=== PATIENT | female | born 1990 | race Caucasian/White ===

== ENCOUNTER 2017-07-20 20:31 | Emergency (ER) | payer BC ==
[~2017-07-20] VITALS: Ht 175.3 cm; Wt 72.0 kg
[~2017-07-20 20:31] MED LIST: ALBU1AER9
[2017-07-20 20:37] VITALS: BP 134/80; TEMP 36.5; Ht 175.3 cm; Wt 72.0 kg
[2017-07-20] MEDS ORDERED: XYLOCAINE 1%/SOD BICARB 20 ML VIAL INFIL ONE (21:00)
--- NOTE | 2017-07-20 21:00 | EMERGENCY ROOM VISIT NOTE ---
History Report prepared by Rodriguez: Venessa Greene Under the Supervision of: Dr. Yi Cody M.D. 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 She notes she was lifting up a car trunk and it hit her in the face. She has a laceration on the bridge of her nose and a cut by her left eye. She does not have a headache, denies nasal bleeding or LOC. No visual changes. TD is UTD. 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 See HPI for pertinent positives & negatives. A total of 6 systems reviewed and were otherwise negative. Past Medical & Surgical Surgical Problems: (1) [place] teeth removed Family History High blood pressure Social History Smoking Status: Never Smoker Smokeless Tobacco Use: No Alcohol Use: occasionally Marital Status: in relationship Housing Status: lives with roommate Occupation Status: employed Current/Historical Medications Scheduled Albuterol (Proair Hfa), PRN Allergies Coded Allergies: No Known Allergies (Unverified , 03/29/11) Physical Exam Vital Signs Date Time Temp Pulse Resp B/P (MAP) Pulse Ox O2 Delivery O2 Flow Rate FiO2 07/20/17 22:24 60 16 100 07/20/17 20:37 36.5 56 18 134/80 100 Room Air Physical Exam Vital signs reviewed. General: Well-appearing female, in no significant distress. HEENT: No scleral icterus, PERRLA, EOMI, neck supple. Lacerations as below. Musculoskeletal: Atraumatic, no peripheral edema. Neurologic: Patient awake alert and oriented x 3. Skin: 0.5cm laceration over the bridge of the nose. It is linear and gaping. Second laceration 0.5 cm to the lateral edge of the left periorbital rim. Edges are gaping, minimal bleeding. Otherwise warm and dry. Medical Decision & Procedures Procedure Location: Nasal bridge, Left periorbital rim Total length: 1 cm (0.5 cm, 0.5 cm) Complexity: simple Verbal consent was obtained after the risks and benefits were explained, including but not limited to bleeding, scarring, infection, pain, and bone/joint /nerve damage. At this time, the risks of the procedure are less than the risks of NOT performing the procedure. A time out was taken and the correct patient and site identified. The skin was prepped with betadine. The target area was anesthetized with 1 ml of 1% lidocaine without epinephrine. Copious irrigation was performed using saline. A sterile field set. Examination revealed no injury to deep structures such as tendons, bone, or significant blood vessels. Debridement was not performed. The nasal bridge wound edges were approximated using 3, 6-0 simple interrupted nylon sutures. The L periorbital rim wound edges were approximated using 3, 6-0 simple interrupted nylon sutures. Hemostasis and excellent approximation was achieved. Antibacterial ointment and a sterile dressing applied to both wounds. Detailed wound care instructions and signs and symptoms of infection reviewed with the patient. No complications and the patient tolerated the procedure well. ED Course 2047: Past medical records reviewed. The patient was evaluated in room D3. A complete history and physical examination was performed. Medical Decision Differential diagnosis: Etiologies such as nasal fraction, facial laceration, closed head injury, concussion, as well as others were entertained. This patient was evaluated and appeared to be in no significant distress. Physical examination reveals 2 small lacerations to the face, one above the nasal bridge in 1 to the left lateral orbital rim. Patient had no significant head injury requiring imaging. She has had no vomiting or loss of consciousness. Patient's wounds were approximated, please see my notes above. Dressings were applied. The patient tolerated the procedure well. Tetanus shot is up-to-date. She will follow-up with her physician for suture removal in approximately 5 days. She was given detailed wound care instructions. She will return to the ER for worsening of symptoms or any medical concerns. Medication Reconcilliation Current Medication List: was personally reviewed by me Blood Pressure Screening Patient's blood pressure: Normal blood pressure Blood pressure disposition: Did not require urgent referral Impression Primary Impression: Laceration of multiple sites of face Scribe Attestation The scribe's documentation has been prepared under my direction and personally reviewed by me in its entirety. I confirm that the note above accurately reflects all work, treatment, procedures, and medical decision making performed by me. Departure Information Referrals [facility] (PCP) Patient Instructions My [facility] Additional Instructions Diagnosis: facial lacerations Wash once daily with warm water and mild soap. Blot dry and apply antibiotic ointment and a dressing. Remove sutures in 5 days. See you doctor. Your tetanus shot is UTD. Keep wound clean and dry. You may wash gently in the shower, but avoid swimming. Use high SPF sunscreen to avoid unsightly darkening of the scar for >1 year. Return to the ED or call your favorite Emergency Physician for signs of infection or any medical concerns. Thanks for your patience this evening!
[2017-07-20 22:24] VITALS: PULSE 60; O2SAT 100
== END 2017-07-20 22:26 | disposition home or self-care (01) ==
LOC: C.EDB 20:33 → C.EDD 22:26
DX: S09.90XA Unspecified injury of head, initial encounter (principal); S01.81XA Laceration without foreign body of other part of head, initial encounter; W22.8XXA Striking against or struck by other objects, initial encounter

== ENCOUNTER 2017-08-26 18:03 | Emergency (ER) | payer BC, OTHER ==
[~2017-08-26] VITALS: Ht 177.8 cm; Wt 72.0 kg
[2017-08-26 18:09] VITALS: BP 129/68; PULSE 102; TEMP 37; O2SAT 96; Ht 177.8 cm; Wt 72.0 kg
[2017-08-26] MEDS ORDERED: LIDOCAINE 1% BUFFERED INJ 5 ML VIAL INFIL ONE (18:30)
[2017-08-26] MEDS ORDERED: PRZ/40 PO (18:47)
[2017-08-26] MEDS ORDERED: PROAIR HFA INH (18:47)
[2017-08-26] MEDS ORDERED: CETI10CA PO (18:49)
--- NOTE | 2017-08-26 19:37 | EMERGENCY ROOM VISIT NOTE ---
History First contact with patient: 18:12 Chief Complaint: HAND PAIN/INJURY Stated Complaint: CUT LEFT HAND ON EXPLODED GLASS BOTTLE History of Present Illness The patient is a 27 year old female who presents to the Emergency Room with complaints of a laceration to her left palm. The patient reports that a growler glass broke in her hands. She reports a superficial laceration to the right palm, but complains of a bleeding wound to the left palm. She denies any initial paresthesias or numbness of the left hand or fingers. Tetanus immunization is up-to-date. The patient rates her discomfort a 3 out of 10. Review of Systems 10 system review was performed and was negative except for pertinent positives and negatives as indicated in history of present illness Past Medical/Surgical History Surgical Problems: (1) [place] teeth removed Medical Problems: (1) Anxiety (2) Depression Surgical Problems: (1) [place] teeth removed Family History High blood pressure Social History Smoking Status: Current Every Day Smoker Alcohol Use: occasionally Marital Status: in relationship Housing Status: lives with roommate Occupation Status: employed Current/Historical Medications Scheduled Cetirizine Hcl (Zyrtec Allergy), 10 MG PO DAILY Fluoxetine Hcl (Prozac), 60 MG PO DAILY [Proair Hfa], 2 PUFF INH PRN UD Physical Exam Vital Signs Date Time Temp Pulse Resp B/P (MAP) Pulse Ox O2 Delivery O2 Flow Rate FiO2 08/26/17 18:09 37.0 102 20 129/68 96 Room Air Physical Exam CONSTITUTIONAL: Healthy and well nourished. Alert and oriented X 3 with positive affect. Patient does not appear in any acute distress. HEENT: Normocephalic, atraumatic. Pupils equal, round and reactive. NECK: Full active range of motion without discomfort. MUSCULOSKELETAL: Examination of the left palm shows a 3.5 cm laceration with only mild bleeding on initial exam. The patient is able to flex and extend the fingers. Capillary refill at the fingertips is less than 2 seconds. Examination of the right palm shows a distal and superficial laceration that will not require suture repair. INTEGUMENTARY: No rash or other significant dermatologic conditions noted. NEUROLOGIC: Left hand and fingers are sensory intact. Medical Decision & Procedures Procedure Laceration repair was performed under local anesthesia after receiving verbal consent from the patient. While the patient suture tray was being set up, the patient reported that she developed severe bleeding that was starting to saturate her gauze and chucks pad. On my examination, the patient had an active arterial bleed. Applying direct pressure to surrounding arteries, several attempts at hemostasis were unsuccessful. I did apply some buffered 1% lidocaine in order to help with some of the discomfort. Additional attempts were made with 5-0 Vicryl [id number] sutures, both distally and proximally with adequate hemostasis. The patient was flexing her fingers and wrist for several minutes without any persistent active bleeding. At this point, additional local anesthesia was administered prior to irrigation. Quick exploration of the wound does not show any underlying foreign body or glass. The wound was then approximated using 4-0 nylon simple interrupted sutures. The patient tolerated the procedure well. ED Course Patient history and physical exam were performed. Nurse's notes were reviewed. Vital signs were reviewed and were normal. The patient did have an active bleed from her left palm laceration. Several Vicryl sutures had to be used for adequate hemostasis, and prior to wound closure. Blood pressure was rechecked and was normal. The patient denied any significant discomfort after the procedure was completed. A bulky pressure dressing was applied. She was instructed to return for any progressively worsening swelling, pain or active bleeding. She was otherwise provided specific written and verbal wound care instructions. Ice and elevation for swelling. Ibuprofen or Tylenol as needed for pain. Suture removal in 12-14 days, or seek reevaluation sooner for any wound concerns. The patient was happy with plan of care, and voiced understanding of all discharge instructions. Medical Decision Medication Reconcilliation Current Medication List: was personally reviewed by me Blood Pressure Screening Patient's blood pressure: Normal blood pressure Impression Primary Impression: Laceration of left palm Departure Information Dispostion Home / Self-Care Forms HOME CARE DOCUMENTATION FORM, IMPORTANT VISIT INFORMATION Patient Instructions My [facility] Additional Instructions Keep wound clean and dry. Do not allow any crusting or dried blood to accumulate on sutures. If this occurs, use a 1:1 solution of hydrogen peroxide/ water on a Q-tip to clean the wound. Use an antibiotic ointment for 3-4 days, then let wound dry. Suture removal in 12-14 days. Return sooner for any signs of infection (increasing redness, swelling, drainage). Ice and elevate for swelling and pain. Ibuprofen 600 mg and/or Tylenol 1000 mg every 6 hrs if needed for pain. Problem Qualifiers Primary Impression: Laceration of left palm Encounter type: initial encounter Qualified Codes: S61.412A - Laceration without foreign body of left hand, initial encounter
== END 2017-08-26 19:29 | disposition home or self-care (01) ==
LOC: C.EDB 18:04 → C.EDD 19:29
DX: S61.412A Laceration without foreign body of left hand, initial encounter (principal); W25.XXXA Contact with sharp glass, initial encounter; F17.210 Nicotine dependence, cigarettes, uncomplicated; F41.8 Other specified anxiety disorders